=== PATIENT | male | born 2000 | race African-American/Black ===

== ENCOUNTER 2021-04-21 10:26 | Emergency (ER) | payer OTHER ==
[2021-04-21 10:55] VITALS: BP 141/79; PULSE 87; TEMP 98.9; BMI 22.4
[2021-04-21 11:21] LABS: EOS % 2.7 % (0-4.5); HEMATOCRIT 43.4 % (35.4-49); HEMOGLOBIN 14.8 GM/dl (11.7-16.9); LYMPH % 38.7 % (8-40); MCH 30.9 pg (25.7-33.7); MEAN CELL VOLUME 90.9 fl (80-96); MEAN PLT VOLUME 8.5 fl (7.5-11.1); MONO % 7.5 % (3.8-10.2); NEUT % 48.1 % (42.8-82.8); PLATELET COUNT 278 10^3/uL (134-434); RBC 4.78 M/mm3 (4.00-5.60); RDW 13.9 % (11.9-15.9); WHITE BLOOD COUNT 8.6 K/mm3 (4.0-10.8)
[2021-04-21 11:27] LABS: ALBUMIN 4.7 g/dl (3.4-5.0); BILIRUBIN,TOTAL 0.6 mg/dl (0.2-1); CALCIUM 9.2 mg/dl (8.5-10); CREATININE 1.1 mg/dl (0.55-1.3); TOT PROT 7.8 g/dl (6.4-8.2)
[2021-04-21 12:07] LABS: EPITHELIAL CELLS FEW /hpf
[2021-04-21 12:08] LABS: URINE MUCUS 1+
== END 2021-04-21 12:54 | disposition home or self-care (01) ==
LOC: FER 10:26
DX: R56.9 Unspecified convulsions (principal)
CPT/HCPCS: 36415; 71046-TC-FY; 80053; 80175; 81003; 81015; 85025; 87086; 93005; 99284-25; G0480